=== PATIENT | male | born 1990 | race Caucasian/White ===

== ENCOUNTER → 2025-04-16 14:24 | Outpatient (REF) | payer BC, SELFPAY | LOC: RCS 14:24 | PROVIDERS: ATTENDING PHYSICIAN Nurse Practitioner Family; FAMILY PHYSICIAN Physician Assistant | DX: R10.9 Unspecified abdominal pain (principal); E78.1 Pure hyperglyceridemia; Z82.49 Family history of ischemic heart disease and other diseases of the circulatory system | CPT/HCPCS: 93306 ==

== ENCOUNTER → 2025-04-20 07:19 | Outpatient (REF) | payer BC, SELFPAY | LOC: RCS 07:19 | PROVIDERS: ATTENDING PHYSICIAN Nurse Practitioner Family | DX: Z13.6 Encounter for screening for cardiovascular disorders (principal); Z82.49 Family history of ischemic heart disease and other diseases of the circulatory system | CPT/HCPCS: 93017 ==

== ENCOUNTER → 2025-05-24 10:46 | Outpatient (REF) | payer BC, SELFPAY | LOC: RAD 10:46 | PROVIDERS: ATTENDING PHYSICIAN Family Medicine; FAMILY PHYSICIAN Nurse Practitioner Family | DX: M79.89 Other specified soft tissue disorders (principal) | CPT/HCPCS: 93970 ==